=== PATIENT | female | born 1990 | race American Indian/Alaskan Native ===

== ENCOUNTER 2016-12-27 16:33 | Emergency (ER) | payer SELFPAY ==
[2016-12-27 17:46] LABS: Basophils % (Auto) 0.4 % (0.0-1.8); Eosinophils % (Auto) 0.9 % (0.0-4.3); Hematocrit 37.8 % (30.3-42.9); Hemoglobin 11.8 gm/dl (10.1-14.3); Mean Corpuscular HGB Conc 31 % (30-34); Mean Corpuscular Volume 80 fl (79-97); Platelet Count 394 K/mm3 (140-440); Red Blood Count 4.73 M/mm3 (3.65-5.03); Red Cell Distribution Width 15.1 % (13.2-15.2); White Blood Count 8.5 K/mm3 (4.5-11.0)
[2016-12-27 17:51] LABS: Mean Corpuscular Hemoglobin 25 pg (28-32)
[2016-12-27 18:59] LABS: Bilirubin,Urine NEG (Negative); Blood,Urine LG (Negative); Ketones,Urine NEG (Negative); Leukocyte Esterase,Urine NEG (Negative); Mucus,Urine FEW /HPF; Nitrite,Urine NEG (Negative); Protein,Urine <15 mg/dL mg/dL (Negative)
--- NOTE | 2016-12-27 21:46 | Ultrasound Report ---
FINAL REPORT PROCEDURE: US PELVIC COMPLETE TECHNIQUE: Real-time transabdominal sonography in multiple planes of pelvis was performed with image documentation. This examination was performed without Doppler. Vascular abnormalities, including ovarian torsion, will not be detectable without Doppler evaluation. CPT 15270 HISTORY: heavy vaginal bleeding COMPARISON: No prior studies are available for comparison. FINDINGS: UTERUS Size: 7.5 x 4.4 x 6.0 centimeters cm. Endometrial thickness: 17 mm. Orientation: anteverted. Cervix: Normal. Fibroids/masses: 3 hypoechoic focal lesions are identified largest measuring 2.7 centimeters located anteriorly. RIGHT Ovary: 3.4 x 2.3 x 2.0 cm. Appearance: Multiple follicles are identified along the periphery. LEFT Ovary: 2.7 x 2.5 x 1.6 cm. Appearance: It is suboptimally visualized due to poor window. Left ovary also appears to contain multiple follicles along the periphery. Pelvic fluid: None. Other: None. IMPRESSION: Multiple focal lesions in the uterus are consistent with fibroids largest measuring 2.7 centimeters in diameter. Multiple ovarian follicles are identified along periphery of the ovaries
--- NOTE | 2016-12-27 22:03 | Ultrasound Report ---
FINAL REPORT PROCEDURE: US TRANSVAGINAL TECHNIQUE: Real-time transvaginal sonography in multiple planes of the pelvis was performed with image documentation. This examination was performed without Doppler. Vascular abnormalities, including ovarian torsion, will not be detectable without Doppler evaluation. CPT 77947 HISTORY: heavy vaginal bleeding COMPARISON: No prior studies are available for comparison. FINDINGS: UTERUS Size: 7.5 x 4.4 x 6.0 centimeters cm. Endometrial thickness: 17 mm. Orientation: anteverted. Cervix: Normal. Fibroids/masses: 3 hypoechoic focal lesions are identified largest measuring 2.7 centimeters located anteriorly. RIGHT Ovary: 3.4 x 2.3 x 2.0 cm. Appearance: Multiple follicles are identified along the periphery. LEFT Ovary: 2.7 x 2.5 x 1.6 cm. Appearance: It is suboptimally visualized due to poor window. Left ovary also appears to contain multiple follicles along the periphery. Pelvic fluid: None. Other: None. IMPRESSION: Three hypoechoic lesions in the uterus consistent with fibroids. 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 Clinical correlation is recommended.
[2016-12-27 22:46] VITALS: BP 124/82
--- NOTE | 2016-12-28 07:20 | Emergency Department Report ---
Entered by PETE REYES, acting as scribe for RENO DORSEY PA. ED Female HPI - General Chief complaint: Vaginal Bleeding Stated complaint: BLOOD CLOTS Time Seen by Provider: 12/27/16 20:05 Source: patient Mode of arrival: Ambulatory Limitations: No Limitations - History of Present Illness Initial comments: 26 y/o female presents to the ED c/o vaginal bleeding with clots x 2-3 months. Denies pain, abdominal pain, fever, chills, nausea and vomiting. Patient states she uses approximately 5-8 pads per day on a heavy day and has not had a normal period in about 4 years. Denies any fevers chills significant abdominal pain nausea or vomiting. No recent vaginal ultrasound. No alleviating or aggravating factors. NKDA. No significant medical and surgical history. States she does not currently have a dedicated OBGYn. , P:0. Complaint: vaginal bleeding Onset/Timin -: month(s) Improves with: none Worsens with: none Are you Now?: No Associated Symptoms: vaginal bleeding. denies: abdominal pain, nausea/vomiting , fever/chills - Related Data Previous Rx's Medication Instructions Recorded Last Taken Type Ferrous Sulfate [Feosol 325 MG tab] 325 mg PO QDAY #30 tablet 12/27/16 Unknown Rx Allergies Allergy/AdvReac Type Severity Reaction Status Date / Time No Known Allergies Allergy Unverified 12/27/16 17:04 ED Review of Systems Comment: All other systems reviewed and negative Constitutional: denies: chills, fever Gastrointestinal: denies: abdominal pain, nausea, vomiting Genitourinary: abnormal menses, other (vaginal bleeding) ED Past Medical Hx - Past Medical History Previous Medical History?: No - Surgical History Past Surgical History?: No - Social History Smoking Status: Never Smoker Substance Use Type: None - Medications Home Medications: Home Medications Medication Instructions Recorded Confirmed Last Taken Type Ferrous Sulfate [Feosol 325 MG tab] 325 mg PO QDAY #30 tablet 12/27/16 Unknown Rx ED Physical Exam - General Limitations: No Limitations General appearance: alert, in no apparent distress - Head Head exam: Present: atraumatic, normocephalic, normal inspection - Eye Eye exam: Present: normal appearance, PERRL, EOMI. Absent: scleral icterus, conjunctival injection, nystagmus, periorbital swelling, periorbital tenderness Pupils: Present: normal accommodation - ENT ENT exam: Present: normal exam, normal orophraynx, mucous membranes moist, TM's normal bilaterally, normal external ear exam - Neck Neck exam: Present: normal inspection, full ROM. Absent: tenderness, meningismus, lymphadenopathy, thyromegaly - Respiratory Respiratory exam: Present: normal lung sounds bilaterally. Absent: respiratory distress, wheezes, rales, rhonchi, stridor, chest wall tenderness, accessory muscle use, decreased breath sounds, prolonged expiratory - Cardiovascular Cardiovascular Exam: Present: regular rate, normal rhythm, normal heart sounds. Absent: bradycardia, tachycardia, irregular rhythm, systolic murmur, diastolic murmur, rubs, gallop - GI/Abdominal GI/Abdominal exam: Present: soft, normal bowel sounds. Absent: distended, tenderness, guarding, rebound, rigid - External exam: Present: bleeding Speculum exam: Present: vaginal bleeding (bloody vaginal discharge, clots) - Extremities Exam Extremities exam: Present: normal inspection, full ROM, normal capillary refill. Absent: tenderness, pedal edema, joint swelling, calf tenderness - Back Exam Back exam: Present: normal inspection, full ROM. Absent: tenderness, CVA tenderness (R), CVA tenderness (L), muscle spasm, paraspinal tenderness, vertebral tenderness, rash noted - Neurological Exam Neurological exam: Present: alert, oriented X3, CN II-XII intact - Psychiatric Psychiatric exam: Present: normal affect, normal mood - Skin Skin exam: Present: warm, dry, intact, normal color. Absent: rash - Other Other exam information: Wen Reyes present during external, speculum and bi-manual exam ED Course Vital Signs 12/27/16 12/27/16 16:56 22:46 Temperature 98.7 F Pulse Rate 87 89 Respiratory 22 18 Rate Blood Pressure 159/99 Blood Pressure 124/82 [Left] O2 Sat by Pulse 99 100 Oximetry ED Medical Decision Making - Lab Data Result diagrams: 12/27/16 17:10 - Medical Decision Making A/P: Menorrhagia, vaginal bleeding, uterine fibroids 1-ultrasound demonstrates uterine fibroids. Patient on patient's complaint of hirsutism likely patient has PCOS will refer her to primary care and [facility] 2-H&H within normal limits, pt states she has been bleeding for months. labs within normal limits, no arterial bleeding noted on pelvic exam 3-patient educated on symptoms of uterine fibroids and I recommended that she follow up with [facility] 4- will start patient empirically on ferrous sulfate supplementation ED Disposition Clinical Impression: Vaginal bleeding Fibroid (bleeding) (uterine) Qualifiers: Uterine leiomyoma location: unspecified location Qualified Code(s): D25.9 - Leiomyoma of uterus, unspecified Disposition: TO HOME OR SELFCARE Is pt being admited?: No Does the pt Need Aspirin: No Condition: Stable Instructions: Menstruation (ED), Uterine Fibroids (ED) Prescriptions: Ferrous Sulfate [Feosol 325 MG tab] 325 mg PO QDAY #30 tablet Referrals: [facility] [Provider Group] - 3-5 Days [facility] [Provider Group] - 3-5 Days [facility] [Outside] - 3-5 Days Forms: Work/School Release Form(ED) Time of Disposition: 22:12 This documentation as recorded by the CHELO vieyra ELIZABETH,accurately reflects the service I personally performed and the decisions made by me,RENO DORSEY PA.
== END 2016-12-27 22:46 | disposition home or self-care (01) ==
LOC: ED 16:33
DX: D25.9 Leiomyoma of uterus, unspecified (principal)
CPT/HCPCS: 36415; 76830; 76856; 81001; 84702; 85025; 86850; 86900; 86901; 87210; 87591

== ENCOUNTER 2018-08-24 18:06 | Emergency (ER) | payer OTHER ==
--- NOTE | 2018-08-24 18:20 | Emergency Department Report ---
Chief Complaint: Vaginal Bleeding Stated Complaint: BLEEDING/CLOTTING/CRAMPING - HPI History of Present Illness: A/C UTERINE FIBROIDS WITH INC VAG BLEED DEPO 1 M AGO MSE COMPLETED - Exam Vital Signs: Vital Signs 08/24/18 18:18 Temperature 98.4 F Pulse Rate 93 H Respiratory 18 Rate Blood Pressure 134/95 O2 Sat by Pulse 100 Oximetry MSE screening note: Focused history and physical exam performed. Due to findings the following was ordered: ED Disposition for MSE Condition: Stable
[2018-08-24 19:16] LABS: HCG Qualitative,Urine Negative (Negative)
[2018-08-24 19:22] LABS: Bilirubin,Urine NEG (Negative); Blood,Urine LG (Negative); Color,Urine Yellow (Yellow); Mucus,Urine 3+ /HPF
[2018-08-24 19:23] LABS: RBC,Urine > 182.0 /HPF (0.0-6.0)
--- NOTE | 2018-08-24 20:44 | Ultrasound Report ---
PROCEDURE: US PELVIC COMPLETE TECHNIQUE: Transvaginal sonography was then performed to better evaluate the structures and/or abnor malities described below with image documentation. Grayscale, color flow Doppler imaging, and velocit y spectral waveform analysis of the ovaries was employed (duplex imaging). HISTORY: DUB HX FIBROIDS COMPARISONS: None . FINDINGS: UTERUS Size: 7.9 x 4.6 x 6.4 cm. Endometrial thickness: 7.8 mm. Orientation: anteverted. Cervix: Normal. Fibroids/masses: There is an intramural fibroid in the left side of the uterus measuring 2.4 cm.. RIGHT Ovary: 3 x 1.8 x 2.3 cm. Appearance: Normal. Doppler images: Normal spectral waveforms and color flow images of the arterial inflow and venous out flow.. LEFT Ovary: 2.3 x 1.3 x 1.6 cm. Appearance: Normal. Doppler images: Normal spectral waveforms and color flow images of the arterial inflow and venous out flow.. Pelvic fluid: There is minimal free pelvic fluid.. IMPRESSION: There is an intramural fibroid in the left side of the uterus measuring 2.4 cm.. There is no ovarian torsion or mass. There is minimal free pelvic fluid.. This document is electronically signed by Félix Jane MD., August 24 2018 08:43:13 PM ET
--- NOTE | 2018-08-24 20:44 | Ultrasound Report ---
PROCEDURE: US PELVIC COMPLETE TECHNIQUE: Real-time transabdominal sonography in multiple planes of the pelvis was performed. The p elvic structures were not optimally visualized. Transvaginal sonography was then performed to better evaluate the structures and/or abnormalities described below with image documentation. Grayscale, col or flow Doppler imaging, and velocity spectral waveform analysis of the ovaries was employed (duplex imaging). HISTORY: DUB HX FIBROIDS COMPARISONS: None . FINDINGS: UTERUS Size: 7.9 x 4.6 x 6.4 cm. Endometrial thickness: 7.8 mm. Orientation: anteverted. Cervix: Normal. Fibroids/masses: There is an intramural fibroid in the left side of the uterus measuring 2.4 cm.. RIGHT Ovary: 3 x 1.8 x 2.3 cm. Appearance: Normal. Doppler images: Normal spectral waveforms and color flow images of the arterial inflow and venous out flow.. LEFT Ovary: 2.3 x 1.3 x 1.6 cm. Appearance: Normal. Doppler images: Normal spectral waveforms and color flow images of the arterial inflow and venous out flow.. Pelvic fluid: There is minimal free pelvic fluid.. IMPRESSION: There is an intramural fibroid in the left side of the uterus measuring 2.4 cm.. There is no ovarian torsion or mass. There is minimal free pelvic fluid.. This document is electronically signed by Félix Jane MD., August 24 2018 08:42:37 PM ET
[2018-08-24 21:08] LABS: Hematocrit 30.3 % (30.3-42.9); Hemoglobin 9.9 gm/dl (10.1-14.3); Mean Corpuscular HGB Conc 33 % (30-34); Mean Corpuscular Volume 73 fl (79-97); Platelet Count 384 K/mm3 (140-440); Red Blood Count 4.13 M/mm3 (3.65-5.03)
--- NOTE | 2018-08-24 21:11 | Emergency Department Report ---
ED Abdominal Pain HPI - General Chief Complaint: Vaginal Bleeding Stated Complaint: BLEEDING/CLOTTING/CRAMPING Time Seen by Provider: 08/24/18 18:21 Source: patient Mode of arrival: Ambulatory Limitations: No Limitations - History of Present Illness Initial Comments: 28 YO FEMALE WITH HX FIBROIDS WITH DUB SAW OB LAST 1 YEAR AGO NO PAIN AMBULATORY NONTOXIC - Related Data Previous Rx's Medication Instructions Recorded Last Taken Type Ferrous Sulfate [Feosol 325 MG tab] 325 mg PO QDAY #30 tablet 12/27/16 Unknown Rx Allergies Allergy/AdvReac Type Severity Reaction Status Date / Time No Known Allergies Allergy Unverified 12/27/16 17:04 ED Review of Systems ROS: Stated complaint: BLEEDING/CLOTTING/CRAMPING Other details as noted in HPI Comment: All other systems reviewed and negative ED Past Medical Hx - Past Medical History Additional medical history: FIBROIDS - Surgical History Past Surgical History?: No - Family History Family history: no significant - Social History Smoking Status: Never Smoker Substance Use Type: Marijuana - Medications Home Medications: Home Medications Medication Instructions Recorded Confirmed Last Taken Type Ferrous Sulfate [Feosol 325 MG tab] 325 mg PO QDAY #30 tablet 12/27/16 Unknown Rx ED Physical Exam - General Limitations: No Limitations General appearance: alert - Head Head exam: Present: atraumatic, normocephalic - Eye Eye exam: Present: normal appearance, PERRL - ENT ENT exam: Present: mucous membranes moist - Neck Neck exam: Present: normal inspection - Respiratory Respiratory exam: Present: normal lung sounds bilaterally - Cardiovascular Cardiovascular Exam: Present: regular rate - GI/Abdominal GI/Abdominal exam: Present: soft, normal bowel sounds - Rectal Rectal exam: Present: deferred - Extremities Exam Extremities exam: Present: normal inspection, full ROM - Back Exam Back exam: Present: normal inspection, full ROM - Neurological Exam Neurological exam: Present: alert, oriented X3 - Psychiatric Psychiatric exam: Present: normal affect, normal mood - Skin Skin exam: Present: warm, dry, intact ED Course Vital Signs 08/24/18 18:18 Temperature 98.4 F Pulse Rate 93 H Respiratory 18 Rate Blood Pressure 134/95 O2 Sat by Pulse 100 Oximetry ED Medical Decision Making - Lab Data Result diagrams: 08/24/18 20:39 08/24/18 20:39 - Medical Decision Making Lab Results 08/24/18 08/24/18 08/24/18 Range/Units 18:46 20:39 20:39 WBC 8.2 (4.5-11.0) K/mm3 RBC 4.13 (3.65-5.03) M/mm3 Hgb 9.9 L (10.1-14.3) gm/dl Hct 30.3 (30.3-42.9) % MCV 73 L (79-97) fl MCH 24 L (28-32) pg MCHC 33 (30-34) % RDW 16.0 H (13.2-15.2) % Plt Count 384 (140-440) K/mm3 Sodium 139 (137-145) mmol/L Potassium 3.9 (3.6-5.0) mmol/L Chloride 105.8 (98-107) mmol/L Carbon Dioxide 22 (22-30) mmol/L Anion Gap 15 mmol/L BUN 13 (7-17) mg/dL Creatinine 0.8 (0.7-1.2) mg/dL Estimated GFR > 60 ml/min BUN/Creatinine Ratio 16 % Glucose 136 H (65-100) mg/dL Calcium 9.0 (8.4-10.2) mg/dL HCG, Qual (Negative) Urine Color Yellow (Yellow) Urine Turbidity Slightly-cloudy (Clear) Urine pH 5.0 (5.0-7.0) Ur Specific [place] 1.042 H (1.003-1.030) Urine Protein 100 mg/dl (Negative) mg/dL Urine Glucose (UA) Neg (Negative) mg/dL Urine Ketones Tr (Negative) mg/dL Urine Blood Lg (Negative) Urine Nitrite Neg (Negative) Ur Reducing Substances Not Reportable Urine Bilirubin Neg (Negative) Urine Ictotest Not Reportable Urine Urobilinogen 2.0 (<2.0) mg/dL Ur Leukocyte Esterase Tr (Negative) Urine WBC (Auto) 8.0 H (0.0-6.0) /HPF Urine RBC (Auto) > 182.0 (0.0-6.0) /HPF U Epithel Cells (Auto) 1.0 (0-13.0) /HPF Urine Mucus 3+ /HPF Urine HCG, Qual Negative (Negative) 08/24/18 Range/Units 20:39 WBC (4.5-11.0) K/mm3 RBC (3.65-5.03) M/mm3 Hgb (10.1-14.3) gm/dl Hct (30.3-42.9) % MCV (79-97) fl MCH (28-32) pg MCHC (30-34) % RDW (13.2-15.2) % Plt Count (140-440) K/mm3 Sodium (137-145) mmol/L Potassium (3.6-5.0) mmol/L Chloride (98-107) mmol/L Carbon Dioxide (22-30) mmol/L Anion Gap mmol/L BUN (7-17) mg/dL Creatinine (0.7-1.2) mg/dL Estimated GFR ml/min BUN/Creatinine Ratio % Glucose (65-100) mg/dL Calcium (8.4-10.2) mg/dL HCG, Qual Negative (Negative) Urine Color (Yellow) Urine Turbidity (Clear) Urine pH (5.0-7.0) Ur Specific [place] (1.003-1.030) Urine Protein (Negative) mg/dL Urine Glucose (UA) (Negative) mg/dL Urine Ketones (Negative) mg/dL Urine Blood (Negative) Urine Nitrite (Negative) Ur Reducing Substances Urine Bilirubin (Negative) Urine Ictotest Urine Urobilinogen (<2.0) mg/dL Ur Leukocyte Esterase (Negative) Urine WBC (Auto) (0.0-6.0) /HPF Urine RBC (Auto) (0.0-6.0) /HPF U Epithel Cells (Auto) (0-13.0) /HPF Urine Mucus /HPF Urine HCG, Qual (Negative) Vital Signs 08/24/18 18:18 Temperature 98.4 F Pulse Rate 93 H Respiratory 18 Rate Blood Pressure 134/95 O2 Sat by Pulse 100 Oximetry DISCUSSED FINDINGS WITH PT DISCUSSED OBGYN AND HER NEED TO FOLLOW UP GIVEN HER DUB AND FIBROID WITH DESIRE TO GET SHE VERBALIZES UNDERSTANDING DC HOME W REFERRAL Critical care attestation.: If time is entered above; I have spent that time in minutes in the direct care of this critically ill patient, excluding procedure time. ED Disposition Clinical Impression: DUB (dysfunctional uterine bleeding), Fibroid, uterine Disposition: DC-01 TO HOME OR SELFCARE Is pt being admited?: No Does the pt Need Aspirin: No Condition: Stable Instructions: Uterine Fibroids (ED) Additional Instructions: follow up obgyn motrin or tylenol for pain Referrals: PRIMARY MD JAVIER [Primary Care Provider] - 3-5 Days DEAN JORGENSEN MD [Staff Physician] - 3-5 Days Time of Disposition: 21:10
[2018-08-24 21:15] LABS: BUN/Creatinine Ratio 16; Blood Urea Nitrogen 13 mg/dL (7-17); Hemolysis Index 7
[2018-08-24 21:28] VITALS: BP 134/95
== END 2018-08-24 21:15 | disposition home or self-care (01) ==
LOC: ED 18:06
DX: D25.9 Leiomyoma of uterus, unspecified (principal); F12.10 Cannabis abuse, uncomplicated
CPT/HCPCS: 36415; 76830; 76856; 80048; 81001; 81025; 84703; 85027